=== PATIENT | female | born 1980 | race African-American/Black ===

== ENCOUNTER 2024-08-29 16:44 | Emergency (ER) | payer MEDICAID ==
[~2024-08-29] VITALS: Ht 157.5 cm; Wt 92.2 kg
--- NOTE | 2024-08-29 17:19 | ED.PDOC ---
Eye-HPI HPI Comments Initial Vital Signs: Temp : 98.1F BP: 124/63 HR: 91 RR: 18 SpO2: 98% Past Medical History: Denies Past Surgical History: Dilation and curettage x2 Social History: Denies smoking, ETOH, or drug use. Medications: No medications. Allergies: NKDA Campos HPI: Poor Historian. 44-year-old female presents to emergency department for two months' history of sinus headache pressure pain. She went to her PCP who did a CT scan without contrast of the head and started her on Keflex. Patient has one pill left on her Keflex bottle. Patient states no improvement. Denies any other acute symptoms. Patient was supposed to follow up with ENT but she has not yet. REVIEW OF SYSTEMS: CONSTITUTIONAL: Denies acute: fever, diaphoresis, chills, generalized weakness. HEAD: Denies acute: , photophobia Eyes: Denies acute: Double vision, vision loss, eye pain, eye discharge. EARS: Denies acute: tinnitus, hearing loss, ear discharge, ear pain, THROAT: Denies acute: sore throat, swelling, difficulty swallowing , pain with swallowing, change in voice. NECK: Denies acute: neck pain, neck swelling, stiff neck. HEART: Denies acute : chest pain, palpitations, LUNGS: Denies acute: SOB, wheezing, cough, hemoptysis ABDOMEN: Denies acute: abdominal pain, Nausea, Vomiting, diarrhea, melena , hematemesis, hematochezia SKIN: Denies acute: rash, redness, lesions, itchiness. EXTREMITIES: Denies acute: calf pain, numbness, tingling, weakness, denies pain in extremity. Denies acute: Low back pain. Neuro: Denies acute: focal neurological deficit, motor or sensory focal neurological deficit, tremors, seizure like activity, confusion, dizziness, change in mental status, loss of bowel or bladder function, cauda equina like symptoms. : Denies acute: dysuria, hematuria, flank pain, increase in urinary frequency. PSYCH: Denies acute: hallucination, suicidal ideation, homicidal ideation. FEMALE: Denies acute: abnormal vaginal bleeding, foul odor, unusual discharge. PHYSICAL EXAM: General: no acute distress, awake and alert. Head: normocephalic, atraumatic. Neck: supple, trachea is midline, no swelling. Throat: Normal phonation. Eyes:, no erythema, no purulent discharge, no proptosis, no icterus. Heart: regular rate, regular rhythm, no significant murmur appreciated. Lungs: no apparent respiratory distress, Able to speak in full sentences. No wheezing, no rhonchi, no crackles. No stridors Clear to auscultation bilaterally. Abdomen: non tender to palpation, non distended, soft, no guarding, no rebound, + bowel sounds. Neuro: Awake, Alert, oriented to name, self, situation, follows commands GCS=15. Speech is normal. Skin: no petechia, no purpura, no cyanosis, non-pale, not jaundice. Lower extremities: --no - Pitting edema no deformity, no focal swelling, no calf TTP. Makes eye contact. moves all four extremities. Face: no apparent facial droop. Ambulating in the ED independently. ED COURSE: Chief Complaint: Headache Time Seen by MD: 17:16 Reviewed Notes: Medications, Allergies Allergies: Coded Allergies: NO KNOWN ALLERGIES (Unverified , 10/20/14) Home Meds Active Scripts Amoxicillin & Pot Clavulanate (AUGMENTIN TABLET) 875 Mg Tb, 875 MG PO BID for 7 Days, #14 TAB Prov:KAVEH ZARAGOZA Dion NEGRON 08/29/24 Information Source: Patient Mode of Arrival: Ambulatory Was a procedure done? Was a procedure done?: No EENT DIFF Eye: N/A Nose: Foreign Body, Other (DDX include Sinusitis, migraine, meningitis, hypertension, intracranial mass/bleed, stroke, radiculopathy, vertebrobasillary insufficiency, cephalgia, pseudotumor cerebri, cerebellar ischemia/infarct, carotid stenosis, lacunar infarct, vertebral/carotid artery dissection, hydrocephalus, temporal arteritis, dura venous sinus thrombosis.) X-Ray, Labs, Meds, VS Vital Signs Date Time Temp Pulse Resp B/P (MAP) Pulse Ox O2 Delivery O2 Flow Rate FiO2 08/29/24 20:45 98.2 86 18 131/83 (99) 100 98.2 08/29/24 17:39 Room Air* 0 21 08/29/24 17:38 87 16 132/71 (91) 95 08/29/24 16:57 98.1 91 18 124/63 (83) 98 Lab Test 08/29/24 17:24 Range/Units White Blood Count 8.0 4.4-10.8 10^3/uL Red Blood Count 4.49 4.0-5.20 10^6/uL Hemoglobin 13.4 12.2-16.2 g/dL Hematocrit 39.6 36.0-46.0 % Mean Corpuscular Volume 88.3 80.0-100.0 fL Mean Corpuscular Hemoglobin 29.8 28.0-32.0 pg Mean Corpuscular Hemoglobin Concent 33.7 32.0-36.0 g/dL Red Cell Distribution Width 14.6 H 11.8-14.3 % Platelet Count 421 140-450 10^3/uL Mean Platelet Volume 8.2 6.9-10.8 fL Neutrophils (%) (Auto) 58.0 37.0-80.0 % Lymphocytes (%) (Auto) 32.6 10.0-50.0 % Monocytes (%) (Auto) 7.4 0.0-12.0 % Eosinophils (%) (Auto) 1.1 0.0-7.0 % Basophils (%) (Auto) 0.9 0.0-2.0 % Neutrophils # (Auto) 4.7 1.6-8.6 10 ^3/uL Lymphocytes # (Auto) 2.6 0.4-5.4 10 ^3/uL Monocytes # (Auto) 0.6 0-1.3 10 ^3/uL Eosinophils # (Auto) 0.1 0-0.8 10 ^3/uL Basophils # (Auto) 0.1 0-0.2 10 ^3/uL Nucleated Red Blood Cells 0.1 % Erythrocyte Sedimentation Rate 32 H 0-20 mm/hr Sodium Level 138 136-145 mmol/L Potassium Level 4.5 3.5-5.1 mmol/L Chloride Level 103 98-107 mmol/L Carbon Dioxide Level 28 20-31 mmol/L Anion Gap 7 5-15 Blood Urea Nitrogen 11 9-23 mg/dL Creatinine 0.84 0.550-1.02 mg/dL Glomerular Filtration Rate Calc 88 >90 mL/min BUN/Creatinine Ratio 13.1 10.0-20.0 Serum Glucose 105 74-106 mg/dL Calcium Level 10.2 8.7-10.4 mg/dL Total Bilirubin 0.3 0.2-1.0 mg/dL Aspartate Amino Transferase (AST) 14 13-40 U/L Alanine Aminotransferase (ALT) 23 7-40 U/L Alkaline Phosphatase 98 46-116 U/L C-Reactive Protein High Sensitivity 1.27 H <1.0 mg/dL Total Protein 7.2 5.7-8.2 g/dL Albumin 4.5 3.2-4.8 g/dL [address] [address] Ph: [phone] DIAGNOSTIC IMAGING Diagnostic Imaging Report : [id number] Signed PATIENT: JENNA CAMPOS ACCT: [id number] UNIT: [id number] : 1980 LOC: ER ROOM / BED: / AGE / SEX: 44 / F ADM STATUS: REG ER SERVICE [id number] ORDERING PHYSICIAN: KAVEH ZARAGOZA DO PROCEDURE(s): HDWCT - HEAD CONTRAST ONLY REASON: SU, sinus pain ORDER NUMBER(s): [id number], ACCESSION NUMBER(s): [id number] EXAM: CT HEAD CONTRAST ONLY INDICATION: SU, sinus pain TECHNIQUE: CT of the head with intravenous contrast. Radiation Dose : 1. Head: CT Dose: CTDI volume is 53.7 mGy. Dose-length product is 951 mGy*cm The dose indicators for CT are the volume Computed Tomography (CT) Dose Index (CTDIvol) and the Dose Length Product (DLP), and are measured in units of mGy and mGy-cm, respectively. These indicators are not patient dose, but values generated from the CT scanner acquisition factors. The report includes radiation exposure data for exposures received during this examination. Contrast: 100 mL [id number] COMPARISON: None FINDINGS: There is no evidence of acute intracranial hemorrhage, extra-axial collection, mass effect, midline shift, herniation or hydrocephalus. The ventricles, sulci and cisterns are age appropriate. The wright-white differentiation is intact. The visualized paranasal sinuses and mastoid air cells are clear. The surrounding soft tissues and osseous structures are unremarkable. No evidence of abnormal enhancement. Hypoplastic left transverse / sigmoid sinus. The dural venous sinuses are otherwise unremarkable. The visualized intracranial arteries are unremarkable. IMPRESSION: No evidence of acute intracranial abnormality. No abnormal enhancement. Radiation optimization: All CT scans at this facility use at least one of these dose optimization techniques: automated exposure control mA and/or kV adjustment per patient size (includes targeted exams where dose is matched to clinical indication) or iterative reconstruction. ATED BY: DYLLAN SMITH DO DICTATED DATE/TIME: 08/29/242038 SIGNED BY: DYLLAN SMITH DO SIGNED DATE/TIME: 08/29/242038 CC: Time of 1ST Reevaluation: 18:16 Reevaluation 1ST: Unchanged Patient Education/Counseling: Diagnosis, Treatment Family Education/Counseling: No Family Present Comments Patient presented with the above HPI.--sinus pressure----workup was initiated. patient was found with the above mentioned diagnosis. the following medications were ordered: please refer to order lists of meds and tests obtained by myself Dr. Zaragoza. Patient ED course and VS have been stabilized. Patient has been reassessed in the ED and remained in a stable condition. Pertinent incidental findings were discussed with the patient and/or family. Patient/family voices understanding and is agreeable with plan. Patient has been observed in the ED adequate length of time to insure improvement/stability. Escalation of care considered: Consideration of escalation to observation or admission Patient was DISCHARGED home in a stable condition. All the reports of any imaging studies that were ordered by myself were reviewed by myself. Departure 1 Departure Time of Disposition: 20:46 Impression: Primary Impression: Sinus pressure Disposition: 01 HOME / SELF CARE / HOMELESS Condition: Stable Additional Instructions: Additional discharge instructions: You MUST follow-up with your primary care/family doctor in 1 to 2 days. If you are unable to see your primary care/family doctor, please return to our emergency room for re-assessment and re-evaluation in 1 to 2 days. Return to the emergency room here in our facility or to the nearest ER [facility] if your symptoms change or worsen. CONSULTATIONS: you MUST Follow-up for consultation as soon as possible with: ENT doctor in 1-2 days. Please call for appointment. You MUST call the consultants office yourself to make an appointment. You may need to arrange that through your insurance and/or your primary/family doctor. If you are unable to see the technical marketing consultant in 1 to 2 days, you must return to our emergency room (or any other ER of your choice) for re-assessment and re- evaluation. Adequate fluid hydration. Below is a copy of your radiological report for follow up: [facility] [id number] [facility] [address] Ph: [phone] DIAGNOSTIC IMAGING Diagnostic Imaging Report : [id number] Signed PATIENT: JENNA CAMPOS ACCT: [id number] UNIT: [id number] : 1980 LOC: ER ROOM / BED: / AGE / SEX: 44 / F ADM STATUS: REG ER SERVICE 11 ORDERING PHYSICIAN: KAVEH ZARAGOZA DO PROCEDURE(s): HDWCT - HEAD CONTRAST ONLY REASON: SU, sinus pain ORDER NUMBER(s): [id number], ACCESSION NUMBER(s): [id number] EXAM: CT HEAD CONTRAST ONLY INDICATION: SU, sinus pain TECHNIQUE: CT of the head with intravenous contrast. Radiation Dose : 1. Head: CT Dose: CTDI volume is 53.7 mGy. Dose-length product is 951 mGy*cm The dose indicators for CT are the volume Computed Tomography (CT) Dose Index (CTDIvol) and the Dose Length Product (DLP), and are measured in units of mGy and mGy-cm, respectively. These indicators are not patient dose, but values generated from the CT scanner acquisition factors. The report includes radiation exposure data for exposures received during this examination. Contrast: 100 mL [id number] COMPARISON: None FINDINGS: There is no evidence of acute intracranial hemorrhage, extra-axial collection, mass effect, midline shift, herniation or hydrocephalus. The ventricles, sulci and cisterns are age appropriate. The wright-white differentiation is intact. The visualized paranasal sinuses and mastoid air cells are clear. The surrounding soft tissues and osseous structures are unremarkable. No evidence of abnormal enhancement. Hypoplastic left transverse / sigmoid sinus. The dural venous sinuses are otherwise unremarkable. The visualized intracranial arteries are unremarkable. IMPRESSION: No evidence of acute intracranial abnormality. No abnormal enhancement. Radiation optimization: All CT scans at this facility use at least one of these dose optimization techniques: automated exposure control mA and/or kV adjustmen t per patient size (includes targeted exams where dose is matched to clinical indication) or iterative reconstruction. ATED BY: DYLLAN SMITH DO DICTATED DATE/TIME: 08/29/242038 SIGNED BY: DYLLAN SMITH DO SIGNED DATE/TIME: 08/29/242038 CC: e-Prescriptions Amoxicillin & Pot Clavulanate (AUGMENTIN TABLET) 875 Mg Tb 875 MG PO BID for 7 Days, #14 TAB Prov: KAVEH ZARAGOZA DO 08/29/24 Discharged With: Self Critical Care Note Critical Care Time?: No I personally scribed for KAVEH ZARAGOZA DO ([email or web address]) on 08/29/24 at 17:19. Electronically submitted by Eligio Gabriel ([email or web address]). I personally scribed for KAVEH ZARAGOZA DO ([email or web address]) on 08/29/24 at 20:46. Electronically submitted by Eligio Gabriel ([email or web address]). KAVEH ZARAGOZA DO Aug 29, 2024 17:19
[2024-08-29 17:54] LABS: Basophils # (auto) 0.1 10 ^3/uL (0-0.2); Basophils % (auto) 0.9 % (0.0-2.0); Eosinophils # (auto) 0.1 10 ^3/uL (0-0.8); Eosinophils % (auto) 1.1 % (0.0-7.0); Hematocrit 39.6 % (36.0-46.0); Hemoglobin 13.4 g/dL (12.2-16.2); Lymphocytes # (auto) 2.6 10 ^3/uL (0.4-5.4); Lymphocytes % (auto) 32.6 % (10.0-50.0); Mean Corpuscular Hemoglobin 29.8 pg (28.0-32.0); Mean Corpuscular Hgb Conc. 33.7 g/dL (32.0-36.0); Mean Corpuscular Volume 88.3 fL (80.0-100.0); Monocytes # (auto) 0.6 10 ^3/uL (0-1.3); Monocytes % (auto) 7.4 % (0.0-12.0); Neutrophils # (auto) 4.7 10 ^3/uL (1.6-8.6); Nucleated Red Blood Cells % 0.1 %; Platelet Count (auto) 421 10^3/uL (140-450); Red Blood Cells 4.49 10^6/uL (4.0-5.20); Red Cell Distribution Width 14.6 % (11.8-14.3)
[2024-08-29 18:13] LABS: Alanine Aminotransferase 23 U/L (7-40); Alkaline Phosphatase 98 U/L (46-116); Anion Gap 7 (5-15); BUN/Creatinine Ratio 13.1 (10.0-20.0); Blood Urea Nitrogen 11 mg/dL (9-23); Calcium 10.2 mg/dL (8.7-10.4); Carbon Dioxide 28 mmol/L (20-31); Chloride 103 mmol/L (98-107); Glucose 105 mg/dL (74-106); Potassium 4.5 mmol/L (3.5-5.1); Sodium 138 mmol/L (136-145)
[2024-08-29 18:14] LABS: Albumin 4.5 g/dL (3.2-4.8); Aspartate Aminotransferase 14 U/L (13-40); Bilirubin, Total 0.3 mg/dL (0.2-1.0); Total Protein 7.2 g/dL (5.7-8.2)
[2024-08-29 18:28] LABS: Erythrocyte Sedimentation Rate 32 mm/hr (0-20)
[2024-08-29 18:42] LABS: CRP High Sensitivity 1.27 mg/dL (<1.0)
[2024-08-29] MEDS: IOHEXOL 300 MG/ML 100ML BOTTLE IJ ONE (20:13)
--- NOTE | 2024-08-29 20:41 | DVH ---
EXAM: CT HEAD CONTRAST ONLY INDICATION: SU, sinus pain TECHNIQUE: CT of the head with intravenous contrast. Radiation Dose : 1. Head: CT Dose: CTDI volume is 53.7 mGy. Dose-length product is 951 mGy*cm The dose indicators for CT are the volume Computed Tomography (CT) Dose Index (CTDIvol) and the Dose Length Product (DLP), and are measured in units of mGy and mGy-cm, respectively. These indicators are not patient dose, but values generated from the CT scanner acquisition factors. The report includes radiation exposure data for exposures received during this examination. Contrast: 100 mL [id number] COMPARISON: None FINDINGS: There is no evidence of acute intracranial hemorrhage, extra-axial collection, mass effect, midline s hift, herniation or hydrocephalus. The ventricles, sulci and cisterns are age appropriate. The wright-white differentiation is intact. The visualized paranasal sinuses and mastoid air cells are clear. The surrounding soft tissues and osseous structures are unremarkable. No evidence of abnormal enhancement. Hypoplastic left transverse / sigmoid sinus. The dural venous s inuses are otherwise unremarkable. The visualized intracranial arteries are unremarkable. IMPRESSION: No evidence of acute intracranial abnormality. No abnormal enhancement. Radiation optimization: All CT scans at this facility use at least one of these dose optimization patricio hniques: automated exposure control mA and/or kV adjustment per patient size (includes targeted exam s where dose is matched to clinical indication) or iterative reconstruction.
[2024-08-29 20:45] VITALS: TEMP 98.2
[2024-08-29] MEDS ORDERED: AUG875T PO (20:46)
[2024-08-29 21:20] VITALS: BP 129/84; PULSE 79; RESP 12; O2SAT 98
[2024-08-29] MEDS: HYDROcodone-ACET 5/325MG TAB PO ONE (21:26)
== END 2024-08-29 21:24 | disposition home or self-care (01) ==
LOC: ER 16:44
DX: R51.9 Headache, unspecified (principal); Z79.2 Long term (current) use of antibiotics
CPT/HCPCS: 36415; 70460; 80053; 85025; 85652; 86141; 99285; Q9967